=== PATIENT | female | born 1940 | race Caucasian/White ===

== ENCOUNTER → 2017-03-15 | Outpatient (CLI) | payer BC, MEDICARE, OTHER ==
[~2017-03-15] MED LIST: ALEN70TA5 PO; ATEN50TA41 PO; DICL50TA4 PO; GABA300C10 PO; MIRT15TA4 PO; OXYC10TA6 PO; OXYC20TA42 PO; ROPI2TAB4 PO
[2017-03-15 15:37] LABS: EPI LOT# 5695218
[2017-03-15 15:52] LABS: BLOOD UREA NITROGEN 5 mg/dL (7-18)
[2017-03-15 15:58] LABS: ASPARTATE AMINO TRANSFERASE 13 U/L (15-37)
[2017-03-15 17:14] LABS: EPI CARTRIDGE 107 SECONDS (72-193); HCT (PFA) 45.1 % (34.6-47.8); PLATELET (PFA) 311 x10^3/uL (130-400)
== END | disposition home or self-care (01) ==
LOC: STAR 13:27
PROVIDERS: ATTEND Neurological Surgery
DX: Z01.818 Encounter for other preprocedural examination (principal); G25.0 Essential tremor; R79.1 Abnormal coagulation profile
CPT/HCPCS: 36415; 71020; 80053; 81003; 85014; 85025; 85049; 85576; 85610; 85730; 93005

== ENCOUNTER 2017-03-18 10:02 | Day surgery (SDC) | payer OTHER ==
[~2017-03-18] VITALS: Ht 167.6 cm; Wt 66.0 kg
[2017-03-18] MEDS ORDERED: LACTATED RINGERS 1,000 ML IV SCH (11:04)
[2017-03-18] MEDS ORDERED: PRIM250T PO (11:07)
[2017-03-18] MEDS ORDERED: OXYC-229 PO (11:07)
[2017-03-18 11:08] VITALS: BP 148/87
[2017-03-18] MEDS ORDERED: GADOBUTROL 10 MMOL/10 ML PFS ONE (13:10)
[2017-03-18] MEDS ORDERED: ONDANSETRON 2MG/ML, 2ML ONE (15:56)
[2017-03-18] MEDS ORDERED: PROPOFOL 10 MG/ML, 20ML ONE (15:56)
== END 2017-03-18 14:50 | disposition home or self-care (01) ==
LOC: OUT 10:02 → EDSTATUS 12:00 → OUT 14:50
PROVIDERS: ATTEND Neurological Surgery
DX: G25.0 Essential tremor (principal); G31.9 Degenerative disease of nervous system, unspecified; J33.8 Other polyp of sinus; I10 Essential (primary) hypertension; Z80.9 Family history of malignant neoplasm, unspecified; Z82.49 Family history of ischemic heart disease and other diseases of the circulatory system; Z91.048 Other nonmedicinal substance allergy status; Z98.890 Other specified postprocedural states; Z87.891 Personal history of nicotine dependence
CPT/HCPCS: 70553; A9585; J2405; J2704; J7120

== ENCOUNTER 2017-04-07 05:38 | Day surgery (SDC) | payer OTHER ==
[~2017-04-07] VITALS: Ht 167.6 cm; Wt 48.3 kg
[~2017-04-07 05:38] MED LIST changes: +CEPH-368 PO; +OXYC-229 PO; +PRIM250T PO
[2017-04-07] MEDS ORDERED: LACTATED RINGERS 1,000 ML IV SCH (06:34)
[2017-04-07 06:43] VITALS: BP 120/81
[2017-04-07] MEDS ORDERED: BUPIVACAINE/PF 0.5% ONE (06:43)
[2017-04-07] MEDS ORDERED: THROMBIN 5,000 UNIT VIAL TP ONE (06:44)
[2017-04-07] MEDS ORDERED: BACITRACIN 50,000 UNIT ONE (06:44)
[2017-04-07] MEDS ORDERED: EPINEPHRINE 1 MG/ML, 1ML ONE (06:44)
[2017-04-07] MEDS ORDERED: FENTANYL PF 250 MCG/5ML ONE (07:19)
[2017-04-07] MEDS ORDERED: BACITRACIN OINT 500U/GM, 15 GM TP ONE (08:53)
[2017-04-07] MEDS ORDERED: HYDROmorphone 1 MG/ML, 1ML IV PRN (09:00)
[2017-04-07] MEDS ORDERED: hydrALAzine 20 MG/ML, 1ML IV PRN (09:00)
[2017-04-07] MEDS ORDERED: METOCLOPRAMIDE 5 MG/ML, 2ML IV PRN (09:00)
[2017-04-07] MEDS ORDERED: ONDANSETRON 2MG/ML, 2ML IVPush PRN (09:00)
[2017-04-07] MEDS ORDERED: ACETAMINOPHEN 325 MG TABLET PO PRN (09:00)
[2017-04-07] MEDS ORDERED: MEPERIDINE/PF 25MG/0.5ML IVPush PRN (09:00)
[2017-04-07] MEDS ORDERED: PROMETHAZINE 25 MG/ML, 1ML IV PRN (09:00)
[2017-04-07] MEDS ORDERED: LABETALOL 5MG/ML, 20ML IV PRN (09:00)
[2017-04-07] MEDS ORDERED: MIDAZOLAM 1 MG/ML, 2ML IV PRN (09:00)
[2017-04-07] MEDS ORDERED: LABETALOL 5MG/ML, 20ML ONE (09:43)
[2017-04-07] MEDS ORDERED: ACETAMINOPHEN 325 MG/10.15 ML UDC ONE (09:43)
[2017-04-07] MEDS ORDERED: OXYcodone 5 MG/5 ML ORAL.SOL UDC ONE ×2 (09:48→10:44)
[2017-04-07] MEDS: OXYcodone 5 MG/5 ML ORAL.SOL UDC PO PRN ×2 (09:49→10:49)
[2017-04-07] MEDS ORDERED: FENTANYL PF 100 MCG/2ML ONE (10:04)
[2017-04-07] MEDS: FENTANYL PF 100 MCG/2ML IV PRN ×2 (10:05→10:10)
[2017-04-07] MEDS ORDERED: CEFAZOLIN 1,000 MG ONE (11:05)
[2017-04-07] MEDS ORDERED: DEXAMETHASONE 4 MG/ML, 1ML ONE (11:05)
[2017-04-07] MEDS ORDERED: PROPOFOL 10 MG/ML, 20ML ONE (11:05)
[2017-04-07] MEDS ORDERED: ONDANSETRON 2MG/ML, 2ML ONE (11:05)
[2017-04-07] MEDS ORDERED: OxyconTIN ER 20 MG TAB.ER PO ONE (12:00)
[2017-04-07] MEDS ORDERED: OXYcodone IR 5MG TABLET PO ONE (12:00)
[2017-04-07] MEDS ORDERED: DIAZEPAM 5 MG TABLET ONE (14:14)
[2017-04-07] MEDS ORDERED: DIAZEPAM 5 MG TABLET PO ONE (14:30)
[2017-04-07] MEDS ORDERED: GABAPENTIN 300 MG CAPSULE PO SCH (14:30)
== END 2017-04-07 16:15 | disposition home or self-care (01) ==
LOC: OUT 05:38
PROVIDERS: ATTEND Neurological Surgery
DX: G25.0 Essential tremor (principal); I10 Essential (primary) hypertension; Z85.038 Personal history of other malignant neoplasm of large intestine; Z80.9 Family history of malignant neoplasm, unspecified; Z82.49 Family history of ischemic heart disease and other diseases of the circulatory system; Z91.048 Other nonmedicinal substance allergy status
CPT/HCPCS: 61886; 70250; 76000; C1767; C1883; J0171; J0690; J1100; J2405; J2704; J3010; J3490; L8681

== ENCOUNTER 2020-02-28 16:36 | Emergency (ER) | payer OTHER, MEDICAID ==
[~2020-02-28] VITALS: Ht 172.7 cm; Wt 85.0 kg
[~2020-02-28 16:36] MED LIST changes: -ALEN70TA5 PO; +ALEN70TA6 PO; +MIRT-34 PO; -MIRT15TA4 PO; -OXYC-229 PO; +OXYC-307 PO; -ROPI2TAB4 PO; +ROPI2TAB8 PO
--- NOTE | 2020-02-28 17:00 | NUR ---
THIS IS AN 79 YO FEMALE THAT WAS A CODE 250 IN PARKING STRUCTURE. PATIENT WAS LEAVING NEUROLOGIST APPT, AND FELL WHILE TRANSFERRRING FROM WALKER TO CAR. TRAUMA RN, DANIEL, TO SCENE AND WHEELED PATIENT TO ROOM. DENIES LOC, DENIES HITTING HEAD, DENIES HEAD/NECK PAIN. C/O RIGHT SHOULDER AND ELBOW PAIN AT THIS TIME. VSS, A&OX3, PER FAMILY THIS IS PATIENT'S NORM. VERY MINIMAL LEFT SIDED FACIAL DROOP AND MILD SLURRED SPEECH, PER FAMILY THIS IS HER NORM. MD TO BED FOR EVAL. ALL MONITORING IN PLACE, AFIB ON MONITOR, PLACED ON 2L NC DUE TO 87% ON RA. SPO2 AT 96% ON 2L. CALL LIGHT IN REACH, FAMILY IN ROOM
[2020-02-28 17:29] LABS: BASOPHILS # (AUTO) 0.03 x10^3/uL (0-0.1); BASOPHILS % (AUTO) 0 % (0-1); EOSINOPHILS # (AUTO) 0.14 x10^3/uL (0-0.4); EOSINOPHILS % (AUTO) 2 % (1-7); LYMPHOCYTES # (AUTO) 0.62 x10^3/uL (1-3.4); LYMPHOCYTES % (AUTO) 9 % (22-44); MD NO; MEAN CORPUSCULAR HEMOGLOBIN 24.2 pg (27.0-34.8); MEAN CORPUSCULAR HGB CONC 31.1 g/dL (32.4-35.8); MEAN CORPUSCULAR VOLUME 77.8 fL (80-100); MEAN PLATELET VOLUME 8.1 fL (7.4-10.4); MONOCYTES # (AUTO) 0.33 x10^3/uL (0.2-0.8); MONOCYTES % (AUTO) 5 % (2-9); NEUTROPHILS # (AUTO) 5.93 x10^3/uL (1.8-6.8); NEUTROPHILS % (AUTO) 84 % (42-75); PLATELET COUNT 334 x10^3/uL (130-400); RED BLOOD COUNT 4.37 x10^6/uL (3.82-5.3); RED CELL DISTRIBUTION WIDTH 17.3 % (9.6-15.2)
[2020-02-28 17:34] LABS: PROTHROMBIN TIME 10.6 Seconds (9.6-11.5)
[2020-02-28 17:37] LABS: ALANINE AMINOTRANSFERASE 34 U/L (12-78); ALBUMIN 3.1 g/dL (3.4-5.0); ANION GAP 5 mmol/L (5-15); CALCIUM 8.2 mg/dL (8.5-10.1); CHLORIDE 109 mmol/L (98-107); CREATININE 0.71 mg/dL (0.55-1.02)
[2020-02-28 17:40] LABS: ALKALINE PHOSPHATASE 137 U/L (45-117); BILIRUBIN,TOTAL 0.3 mg/dL (0.2-1.0); TOTAL PROTEIN 6.9 g/dL (6.4-8.2)
--- NOTE | 2020-02-28 17:50 | NUR ---
PATIENT IN CT
[2020-02-28 18:00] VITALS: BP 123/63
--- NOTE | 2020-02-28 18:14 | NUR ---
SPOKE WITH RADIOLOGY, CT C-SPINE NEED TO BE RESULTED BEFORE XRAY, NEED C-SPINE CLEARANCE BEFORE MOVING PATIENT IN XRAY
--- NOTE | 2020-02-28 18:38 | NUR ---
PATIENT TO XRAY
--- NOTE | 2020-02-28 19:25 | NUR ---
SPOKE WITH MD JERMAIN. JERMAIN TO BEDSIDE FOR EVAL. PATIETN STATES SHE FEELS STRONG ENOUGH TO GO HOME. SPOKE WITH DAUGHTER ON PHONE, DAUGHTER STATES SHE DOES NOT SEE ANY REASON TO KEEP HER ADMITTED TO THE HOSPITAL, AND NO CHANGE FROM NORM. ROSIE HAS CARETAKERS AT HOME FOR ADDITIONAL HELP. PATIENT IS MEDICALLY CLEARED BY MD JERMAIN.
[2020-02-28] MEDS ORDERED: NEOSPORIN OINT. PKT 1 PACKET ONE (19:30)
--- NOTE | 2020-02-28 19:54 | NUR ---
PATIENT AMBULATORY WITH OWN WALKER TO DISCHARGE. VERBALIZES UNDERSTANDING OF DISCHARGE PAPERWORK AND INSTRUCTIONS. DAUGHTER HERE FOR TRANSPORTATION AND SAFE DISCHARGE
== END 2020-02-28 19:59 | disposition home or self-care (01) ==
LOC: ED 17:05
DX: S49.91XA Unspecified injury of right shoulder and upper arm, initial encounter (principal); S09.90XA Unspecified injury of head, initial encounter; S79.911A Unspecified injury of right hip, initial encounter; R53.1 Weakness; R10.9 Unspecified abdominal pain; W01.0XXA Fall on same level from slipping, tripping and stumbling without subsequent striking against object, initial encounter; Y93.89 Activity, other specified; Y92.488 Other paved roadways as the place of occurrence of the external cause; Y99.8 Other external cause status
CPT/HCPCS: 36415; 70450; 71045; 72125; 80053; 85025; 85610; 99285